=== PATIENT | female | born 1990 | race Caucasian/White ===

== ENCOUNTER 2020-10-20 00:11 | Emergency (ER) | payer OTHER, SELFPAY ==
[2020-10-20 00:35] VITALS: BP 170/97; PULSE 118; RESP 24; TEMP 37.2; O2SAT 97; BMI 23.6
--- NOTE | 2020-10-20 02:43 | ED.SKABFB ---
HPI - Skin/Abscess/Foreign Bdy General Chief complaint: Skin/Abscess/Foreign Body Stated complaint: ?SCABIES Time Seen by Provider: 10/20/20 02:43 History of Present Illness HPI narrative: 30-year-old female who presents with complaints of what she suspects is bedbugs versus scabies. She denies any associated fevers, chills. Related Data Previous Rx's Medication Instructions Recorded permethrin 1 appl TOPICAL Q14D #60 g 10/20/20 Allergies Allergy/AdvReac Type Severity Reaction Status Date / Time Penicillins Allergy Mild HIVES Unverified 03/15/20 15:50 amoxicillin [AMOXICILLIN] Allergy Unknown HIVES Unverified 03/15/20 15:50 morphine [Morphine] AdvReac Mild FLUSHING, Unverified 03/15/20 15:50 IRRITATION Review of Systems Review of Systems: Pertinent positives and negatives as stated in HPI 10 point review of systems is otherwise negative. PMFSH Past Medical History Source: nursing notes reviewed Social History Social History Advance Directives: No Advance Directives Information Provided: No Physical Exam Vital Signs: Vital Signs: Last Vital Signs Temp 99.0 F 10/20/20 00:35 Pulse 118 H 10/20/20 00:35 Resp 24 H 10/20/20 00:35 BP 170/97 H 10/20/20 00:35 Pulse Ox 97 10/20/20 00:35 Body Mass Index 23.6 VITAL SIGNS: Reviewed. GENERAL: Well developed, well nourished, mild distress. HEAD: Normocephalic/atraumatic EYES: PERRLA, EOMI EARS: Ext canals without abnormality, TMs non-bulging and non-erythematous NOSE: Nares patent bilateral OROPHARYNX: no oral lesions noted, posterior pharynx clear NECK: Supple, no adenopathy LUNGS: Normal breath sounds. SpO2<97> CARDIOVASCULAR: Regular rate and rhythm without noted murmurs ABDOMEN: Soft, non-tender, non-distended with bowel sounds. BACK: There is a noted wound to the left upper back that is healing by secondary intention without evidence of erythema, induration, purulence drainage. SKIN: Inspection of the skin reveals several scattered insect bites to all extremities with minimal surrounding erythema NEUROLOGIC: Alert and oriented x 4. Course Course Course Narrative: 30-year-old female with history and clinical presentation concerning for possible bedbugs versus scabies as the distribution is not conclusive. Patient was discharged in stable condition with instructions to use permethrin and provided with a prescription for this. Discharge Plan Discharge Clinical Impression: Insect bite Patient Disposition: Home, Self-Care Instructions: Scabies (ED) Additional Instructions: Return the emergency department if you have any acute worsening of your symptoms. Prescriptions: New permethrin 5 % cream 1 appl topical Q14D Qty: 60 RF: 0 Interventions: ED Discharge Assessment Last Done: 10/20/20 02:57 Discharge Date/Time: 10/20/20 02:57
[2020-10-20] MEDS: Bacitracin Oint 14 GM TUBE 1 APPL TOPICAL (02:59)
== END 2020-10-20 02:57 | disposition home or self-care (01) ==
PROVIDERS: Emergency Provider Student in an Organized Health Care Education/Training Program; PCP Pediatrics
DX: R21 Rash and other nonspecific skin eruption (principal); S20.462A Insect bite (nonvenomous) of left back wall of thorax, initial encounter; S80.862A Insect bite (nonvenomous), left lower leg, initial encounter; S80.861A Insect bite (nonvenomous), right lower leg, initial encounter; S40.862A Insect bite (nonvenomous) of left upper arm, initial encounter; S40.861A Insect bite (nonvenomous) of right upper arm, initial encounter; W57.XXXA Bitten or stung by nonvenomous insect and other nonvenomous arthropods, initial encounter; Y93.9 Activity, unspecified; Y92.019 Unspecified place in single-family (private) house as the place of occurrence of the external cause; Y99.9 Unspecified external cause status
CPT/HCPCS: 99283